=== PATIENT | male | born 1930 | race Caucasian/White ===

== ENCOUNTER 2017-02-06 09:50 | Inpatient (IN) | payer OTHER ==
[~2017-02-06] VITALS: Ht 185.4 cm; Wt 68.0 kg
--- NOTE | ~2017-02-06 | D ---
[facility] [place] [address] DISCHARGE SUMMARY Name: AILYN PURCELL Room #: 431-P [facility] [place].#: [id number] Admission: 02/06/17 Attend Phys: Ashwin Zambrano Discharge: 02/08/17 Date of : 32 Report #: [id number] THIS REPORT FOR: //name// CC: Juan James FINAL DIAGNOSES: 1. Urinary tract infection. 2. Senile dementia of Alzheimer's type. 3. Hypertension. 4. Altered mental status due to #1 and 2. HOSPITAL COURSE: The patient was admitted from [facility] with confusion. Ultimately diagnosis of urinary tract infection was made based on urinalysis and culture. He received antibiotics according to sensitivities. His mental status is at baseline. He was pleasantly confused. He had elevated blood pressures and metoprolol was started. PHYSICAL EXAMINATION ON THE DAY OF DISCHARGE: GENERAL: He was awake and alert, pleasantly confused, in no distress. VITAL SIGNS: He had stable vital signs, reviewed electronically. LUNGS: Clear. HEART: Regular. ABDOMEN: Soft. Normoactive bowel sounds. EXTREMITIES: No edema. DISPOSITION: He is returning to [facility] with diet and activity as tolerated. Code status should be addressed with the facility and his family, recommending DNR based on his dementia and age. He will finish Cipro for 5 days and be on Toprol-XL 25 mg a day. <ELECTRONICALLY SIGNED> By: Dane Pinto MD 02/09/17 [id number] Dane Pinto MD /nt
--- NOTE | ~2017-02-06 | H ---
[facility] [place] [address] HISTORY AND PHYSICAL Name: AILYN PURCELL Room #: 431-P ADM IN M.R.#: [id number] Admission: 02/06/17 Attend Phys: Ashwin Zambrano Discharge: Date of : 32 Report #: [id number] THIS REPORT FOR: //name// CC: Juan James DATE OF SERVICE: 02/06/2017 CHIEF COMPLAINT: Confusion. HISTORY OF PRESENT ILLNESS: The patient is an 86-year-old gentleman with dementia from [facility]. He is sent to the Emergency Room with confusion. All the history is obtained by reviewing the medical record or the electronic record. Apparently, the staff found him on the floor at 2 in the morning and they were unsure how long he was down. They seemed to notice he was favoring his left arm, but there was no obvious overt injury. Other than that, they said he was "more confused than normal". There is very limited other data available and he is too confused to provide any specific details. PAST MEDICAL HISTORY: Senile dementia, likely Alzheimer's type, depression, GERD, COPD, hypertension, history of alcohol abuse and history of gastritis. He had a remote head injury, the details are unknown. PAST SURGICAL HISTORY: Unknown. FAMILY HISTORY: Unknown. SOCIAL HISTORY: He lives at [facility] for a number of years. No known chronic alcohol or tobacco use. ALLERGIES: None. MEDICATIONS: Gabapentin b.i.d., Tylenol and multivitamin. REVIEW OF SYSTEMS: He is unable to give a review. He is alert, tries to answer questions yes or no and pleasantly confused. PHYSICAL EXAMINATION: VITAL SIGNS: Temperature 36.3, pulse 79, respirations 24, blood pressure 145/88 and O2 sat 98% on room air. GENERAL: As mentioned, he is awake, alert, resting in bed, in no distress. HEAD AND NECK: Unremarkable. He does have what appears to be a 1-cm actinic keratosis on the top of the scalp. Neck is unremarkable. LUNGS: Clear. HEART: Regular. ABDOMEN: Soft. Normoactive bowel sounds. No rebound or guarding. EXTREMITIES: No cyanosis, clubbing or edema. [address] [address] HISTORY AND PHYSICAL Name: AILYN PURCELL Room #: 431-P [facility].#: [id number] Admission: 02/06/17 Attend Phys: Ashwin Zambrano Discharge: Date of : 32 Report #: [id number] NEUROLOGIC: He moves all extremities. Speech is clear, but limited due to his dementia. He is not oriented to place and situation. LABORATORY DATA: Pertinent lab data revealed a urinalysis with white cells, bacteria, leukocyte esterase and nitrite. ASSESSMENT: 1. Acute cystitis. 2. Prerenal acute kidney injury. 3. Senile dementia of Alzheimer's type. 4. Hypertension. PLAN: I will continue Rocephin empirically for urinary infection, pending the culture results. I have asked social work assess his ability to [facility] to [facility]. A low-dose beta richa for his blood pressure. Due to low platelet counts, we will not place him on Lovenox DVT prophylaxis, but SCDs instead. <ELECTRONICALLY SIGNED> By: Dane Pinto MD 02/07/17 1213 [id number] Dane Pinto MD /nt
[~2017-02-06 09:50] MED LIST: FAMCYCLOVIR 50500 M1 PO; LOPERAMIDE 2 MG2 M1 PO; LUTEIN-ZEAXANT1 EACH PO; MAPAP325 MG PO; MEDROL DOSPAK21 TAB PO; NOHOMEMEDICATIONS
[2017-02-06 09:51] VITALS: BP 127/53; BP 170/83
[2017-02-06 10:39] LABS: URINE BILIRUBIN NEGATIVE (Negative); URINE BLOOD 1+ (Negative); URINE CLARITY SL CLOUDY; URINE COLOR YELLOW; URINE GLUCOSE-RANDOM* NEGATIVE (Negative); URINE KETONES NEGATIVE (Negative); URINE LEUKOCYTES 3+ (Negative); URINE NITRITE POSITIVE (Negative); URINE PROTEIN (DIPSTICK) 1+ (Negative); URINE SPECIFIC GRAVITY 1.025 (1.005-1.035); URINE UROBILINOGEN 0.2 E.U./dl (0.2-1.0)
[2017-02-06 10:54] LABS: BACTERIA >30 Many /HPF (None Seen); CASTS None Seen /LPF (None Seen); CRYSTALS None Seen /LPF (None Seen); SQUAMOUS None Seen /LPF (0-3); URINE RBC 0-2 Rare /HPF (0-2); URINE WBC >25 Many /HPF (0-5)
[2017-02-06 11:02] LABS: ABSOLUTE NEUTROPHILS 8.8 thou/uL (1.4-8.2); BASOPHILS 0.3 % (0.0-2.0); EOSINOPHILS 0.7 % (0.0-3.0); HEMATOCRIT 37.3 % (42.0-52.0); HEMOGLOBIN 12.4 gm/dL (14.0-18.0); LYMPHOCYTES 6.6 % (24.0-44.0); MCH 32.3 pg (26.0-34.0); MCHC 33.2 g/dL (28.0-37.0); MCV 97.2 fL (80.0-100.0); MONOCYTES 6.1 % (1.0-8.0); PLATELET COUNT 106 thou/uL (150-400); POLYS 86.3 % (36.0-66.0); RBC 3.84 mil/uL (4.50-6.00); RDW 16.7 % (10.5-14.5); WBC 10.2 thou/uL (4.0-11.0)
[2017-02-06 11:09] LABS: CALCIUM 8.2 mg/dL (8.5-10.1); CREATININE 1.7 mg/dL (0.7-1.3); POTASSIUM 4.2 mmol/L (3.5-5.1)
[2017-02-06 11:14] LABS: ALBUMIN 3.3 g/dL (3.4-5.0); DIRECT BILIRUBIN 0.2 mg/dL (<0.1-0.3)
[2017-02-06] MEDS ORDERED: LOPERAMIDE 2 MG2 M1 PO (12:45)
[2017-02-06] MEDS ORDERED: NEURONTIN100 MG PO ×2 (12:45→12:46)
[2017-02-06] MEDS ORDERED: MAPAP325 MG PO (12:47)
[2017-02-06 12:52] VITALS: BP 170/83
[2017-02-06 14:15] VITALS: BP 178/89
[2017-02-06 19:47] VITALS: BP 133/64
[2017-02-07 03:00] VITALS: BP 145/88
[2017-02-07 06:45] LABS: HEMATOCRIT 33.6 % (42.0-52.0); HEMOGLOBIN 11.3 gm/dL (14.0-18.0); MCH 32.6 pg (26.0-34.0); MCHC 33.5 g/dL (28.0-37.0); MCV 97.2 fL (80.0-100.0); RBC 3.46 mil/uL (4.50-6.00); RDW 16.9 % (10.5-14.5); WBC 8.4 thou/uL (4.0-11.0)
[2017-02-07 07:06] LABS: ALBUMIN 2.7 g/dL (3.4-5.0); CALCIUM 7.8 mg/dL (8.5-10.1); CREATININE 1.3 mg/dL (0.7-1.3); POTASSIUM 3.9 mmol/L (3.5-5.1); TOTAL BILIRUBIN 0.9 mg/dL (<0.1-1.0); TOTAL PROTEIN 6.2 g/dL (6.4-8.2)
[2017-02-07 09:44] VITALS: BP 156/54
[2017-02-07 16:00] VITALS: BP 122/57
[2017-02-07 20:12] VITALS: BP 150/59
[2017-02-08 04:29] VITALS: BP 179/59
[2017-02-08 06:20] LABS: HEMATOCRIT 34.6 % (42.0-52.0); HEMOGLOBIN 11.6 gm/dL (14.0-18.0); MCH 32.3 pg (26.0-34.0); MCHC 33.6 g/dL (28.0-37.0); MCV 96.1 fL (80.0-100.0); RBC 3.6 mil/uL (4.50-6.00); RDW 16.2 % (10.5-14.5); WBC 9.4 thou/uL (4.0-11.0)
[2017-02-08 06:26] LABS: CREATININE 1.3 mg/dL (0.7-1.3); POTASSIUM 3.9 mmol/L (3.5-5.1)
[2017-02-08 07:43] VITALS: BP 155/66
[2017-02-08 10:21] VITALS: BP 155/66
[2017-02-08] MEDS ORDERED: METOPROLOL SUCC25 M1 PO (12:57)
[2017-02-08] MEDS ORDERED: CIPRO250 M1 PO (12:58)
[2017-02-08] MEDS ORDERED: ACETAMINOPHEN325 M1 PO (12:58)
== END 2017-02-08 15:19 | DRG 689 ==
LOC: ER 09:50 → EROBS 12:29 → 4E 12:29 → EROBS 13:16 → 4E 13:28 → ENTRNSPT 02-08 15:03 → EDTRNSPTSTS 02-08 15:05 → 4E 02-08 15:19
PROVIDERS: Internal Medicine Geriatric Medicine; Nurse Practitioner
DX: N30.00 Acute cystitis without hematuria (principal); G93.41 Metabolic encephalopathy; N17.9 Acute kidney failure, unspecified; F32.9 Major depressive disorder, single episode, unspecified; K21.9 Gastro-esophageal reflux disease without esophagitis; J44.9 Chronic obstructive pulmonary disease, unspecified; F41.9 Anxiety disorder, unspecified; I10 Essential (primary) hypertension; M19.90 Unspecified osteoarthritis, unspecified site; I73.9 Peripheral vascular disease, unspecified; G30.9 Alzheimer's disease, unspecified; F02.80 Dementia in other diseases classified elsewhere, unspecified severity, without behavioral disturbance, psychotic disturbance, mood disturbance, and anxiety; Z79.899 Other long term (current) drug therapy; Z87.891 Personal history of nicotine dependence
CPT/HCPCS: 10183